=== PATIENT | female | born 1955 | race Caucasian/White ===

== ENCOUNTER 2017-01-27 08:51 | Emergency (ER) | payer BC, OTHER ==
[2017-01-27 09:15] VITALS: BP 130/98; PULSE 98; RESP 18; TEMP 98.8; O2SAT 98
--- NOTE | 2017-01-27 09:31 | EDPHY ---
H & P Time Seen by Provider: 01/27/17 08:57 HPI/ROS: CHIEF COMPLAINT: Cough, sore throat, ear pain, facial congestion HISTORY OF PRESENT ILLNESS: 61-year-old female presenting with her who is also ill with similar symptoms. Patient reports that she has had a cough for 3 days, mild feeling of shortness of breath, sinus congestion and fullness in her face, and developed left ear pain this morning. No fever. Cough is productive of yellow sputum. No chest pain. No nausea, vomiting, or diarrhea. No headache or lightheadedness. REVIEW OF SYSTEMS: Aside from elements discussed in the HPI, a comprehensive 10-point review of systems was reviewed and is negative. PAST MEDICAL HISTORY: Hypertension. SOCIAL HISTORY: . Nonsmoker. VITAL SIGNS: see nurse's notes. GENERAL: Well-developed, well-nourished, in no acute distress. Sounds congested. HEENT: Atraumatic Eyes: PERRL, EOMI, no conjunctival injection. Ears: Vesicles are present on the TMs bilaterally. Loss of landmarks on the left. No sinus tenderness to palpation. Mouth: moist mucous membranes. Pharynx: Mild erythema, no exudates, no swelling, no abscess. Uvula is midline. NECK: Supple, no adenopathy, no meningismus, no tenderness. Negative Kernig's and Brudzinski's. LUNGS: Mostly clear with occasional wheezy cough precipitated by deep inspiration. No rhonchi, no rales. CARDIAC: Regular rate and rhythm, no rubs, murmurs or gallops. ABDOMEN: Soft, nontender, bowel sounds normal. BACK: No CVA tenderness. EXTREMITIES: Normal, no edema, FROM. NEURO: Alert and oriented, grossly nonfocal. SKIN: Warm and dry, no rash. PSYCHIATRIC: Normal mentation, no agitation. Smoking Status: Never smoked Constitutional: Initial Vital Signs Temperature (C) 37.1 C 01/27/17 09:11 Heart Rate 98 01/27/17 09:11 Respiratory Rate 18 01/27/17 09:11 Blood Pressure 130/98 H 01/27/17 09:11 O2 Sat (%) 98 01/27/17 09:11 O2 Delivery Mode Room Air Allergies/Adverse Reactions: Penicillins Allergy (Verified 01/27/17 09:15) Home Medications: Medication Instructions Recorded AZITHROMYCIN [Z-PACK] 250 - 500 mg PO DAILY #6 tab 01/27/17 Albuterol [Proventil Inhaler HFA 1 - 2 puffs IH Q4H #1 mdi 01/27/17 (*)] Pantoprazole Sodium 01/27/17 Synthroid 01/27/17 VYVANSE 01/27/17 Medical Decision Making ED Course/Re-evaluation: 61-year-old male with a history of hypertension presenting with 4 days sore throat, facial congestion, cough, and now ear pain. Patient was placed on azithromycin to cover both otitis media as well as any bronchitis. She was given a prescription for meter dose inhaler and also recommended to use Flonase nasal spray for her sinus congestion. Differential Diagnosis: Differential diagnosis of the patient's symptom complex was considered including but not limited to viral upper respiratory infection, sinusitis, bacterial sinusitis, viral pharyngitis, strep pharyngitis, bronchitis, bronchospasm, and influenza. Departure - Departure Disposition: Home, Routine, Self-Care Clinical Impression: Bronchitis Otitis media Qualifiers: Otitis media type: unspecified Laterality: left Chronicity: unspecified Qualified Code(s): H66.92 - Otitis media, unspecified, left ear Condition: Good Instructions: Otitis Media (ED), Upper Respiratory Infection (ED), Acute Bronchitis (ED) Additional Instructions: 1. Please take the azithromycin as directed. This will treat both your cough as well as your ear infection. 2. Please use the Flonase nasal spray as directed. It is important to have a decongestant when you have an ear infection. Flonase nasal spray is available [id number]. You may also try an oral decongestant or Afrin nasal spray. 3. Please use the albuterol meter dose inhaler as directed, 4 times a day to help with her cough. 4. Get plenty of rest, drink plenty of fluid. Return to the emergency department or seek care urgently if your symptoms are not improving as expected. Referrals: Kaila Singleton [Primary Care Provider] - As per Instructions Prescriptions: Albuterol [Proventil Inhaler HFA (*)] 1 - 2 puffs IH Q4H #1 mdi AZITHROMYCIN [Z-PACK] 250 - 500 mg PO DAILY #6 tab
== END 2017-01-27 09:40 | disposition home or self-care (01) ==
LOC: CED 08:51
DX: J20.9 Acute bronchitis, unspecified (principal); H66.92 Otitis media, unspecified, left ear; I10 Essential (primary) hypertension